=== PATIENT | female | born 1960 | race Caucasian/White ===

== ENCOUNTER 2016-12-13 12:09 | Emergency (ER) | payer OTHER ==
[2016-12-13 12:20] VITALS: BMI 37.9
[2016-12-13 12:27] VITALS: TEMP 97.7
--- NOTE | 2016-12-13 13:52 | RAD ---
PROCEDURE: Radiographs of the Left Shoulder HISTORY: r/o fx COMPARISON: Comparison made with prior study 01/01/2016 FINDINGS: BONES: No definitive radiographic evidence of acute displaced fracture. JOINTS: Anterior inferior dislocation left humeral head with respect to the glenoid. . Mild degenerative changes left acromioclavicular joint. SOFT TISSUES: There appears to be some small calcifications in the soft tissues subjacent to the distal margin of the acromion. OTHER FINDINGS: None. IMPRESSION: Anterior inferior dislocation left humeral head. . Mild DJD as above. Tiny calcifications within the soft tissues subjacent to the mid distal margin acromion.
--- NOTE | 2016-12-13 13:53 | RAD ---
PROCEDURE: Left knee dated 12/13/2016 HISTORY: Pain. COMPARISON: None. FINDINGS: BONES: No evidence of acute displaced fracture nor dislocation. The osseous structures appear intact. JOINTS: Joint spaces relatively preserved. Tiny posterior patellar osteophytes. JOINT EFFUSION: Questionable trace joint effusion OTHER FINDINGS: None. IMPRESSION: No acute fractures. Questionable trace joint
[2016-12-13 14:28] VITALS: BP 125/78; PULSE 78; RESP 16; O2SAT 98
--- NOTE | 2016-12-13 14:50 | C.PDOC ---
History Of Present Illness 56 y/o female presents to the ED with complains of left shoulder and knee pain for the past 2 months s/p fall. Pt initially went to [facility] for evaluation. Denies fall or trauma since then. Pt ambulates with limp. Denies weakness, numbness, or any other complaints. Chief Complaint (Nursing): Upper Extremity Problem/Injury History Per: Patient History/Exam Limitations: no limitations Onset/Duration Of Symptoms: Days Current Symptoms Are (Timing): Still Present Quality: "Pain" Severity: Moderate Recent travel outside of the [place]: No Past Medical History Reviewed: Historical Data, Nursing Documentation, Vital Signs Vital Signs: Last Vital Signs Temp 97.7 F 12/13/16 12:22 Pulse 78 12/13/16 14:26 Resp 16 12/13/16 14:26 BP 125/78 12/13/16 14:26 Pulse Ox 98 12/13/16 14:54 - Medical History PMH: Arthritis, Depression, HTN Family History: States: Unknown Family Hx - Social History Hx Alcohol Use: No Hx Substance Use: No - Immunization History Hx Tetanus Toxoid Vaccination: No Hx Influenza Vaccination: No Hx Pneumococcal Vaccination: No Review Of Systems Musculoskeletal: Positive for: Shoulder Pain (left), Other (left knee pain) Neurological: Negative for: Weakness, Numbness Physical Exam - Physical Exam Appears: Non-toxic, No Acute Distress Skin: Warm, Dry, No Rash Head: Atraumatic, Normacephalic Chest: Symmetrical Cardiovascular: Rhythm Regular, No Murmur Respiratory: Normal Breath Sounds, No Rales, No Rhonchi, No Wheezing Extremity: Capillary Refill (<2 seconds), Other (Left shoulder swelling with decreased ROM in all melchor and creppitus. Left knee with slight decrease ROM and creppitus, no point tenderness. ) Pulses: Left Radial: Normal, Left Dorsalis Pedis: Normal Neurological/Psych: Oriented x3, Normal Speech, Normal Motor, Normal Sensation ED Course And Treatment O2 Sat by Pulse Oximetry: 98 (room air) Pulse Ox Interpretation: Normal Progress Note: After obtaining shoulder Xray, shoulder easily reduced, (+) pulses after reduction. Shoulder immobilizer placed. Instructed patient the need to follow up with orthopedic surgery. Disposition - Disposition Referrals: Cuauhtemoc Rob III, MD [Staff Provider] - Disposition: HOME/ ROUTINE Disposition Time: 14:00 Condition: GOOD Additional Instructions: Thank you for letting us take care of you today. Your provider was Dr. Simmons. You were treated for chronic shoulder dislocation. The emergency medical care you received today was directed at your acute symptoms. If you were prescribed any medication, please fill it and take as directed. It may take several days for your symptoms to resolve. Return to the Emergency Department if your symptoms worsen, do not improve, or if you have any other problems. Please contact your doctor or call one of the physicians/clinics you have been referred to that are listed on the Patient Visit Information form that is included in your discharge packet. Bring any paperwork you were given at discharge with you along with any medications you are taking to your follow up visit. Our treatment cannot replace ongoing medical care by a primary care provider (PCP) outside of the emergency department. Thank you for allowing the [facility] team to be part of your care today. You have a dislocated shoulder which occurred approximately 2 months ago. Follow up with the orthopedic surgeon next week for evaluation of your shoulder. Do not take your arm out of the sling until you are seen by him. Prescriptions: Ibuprofen [Motrin] 600 mg PO Q6 PRN #20 tab PRN Reason: Pain, Moderate (4-7) Instructions: Shoulder Dislocation (ED) Forms: Gen Discharge Inst Romanian Print Language: MALTESE - Clinical Impression Clinical Impression: Chronic dislocation of left shoulder, Knee pain - Scribe Statement The provider has reviewed the documentation as recorded by the Radha Boyce Provider Attestation: All medical record entries made by the Radha were at my direction and personally dictated by me. I have reviewed the chart and agree that the record accurately reflects my personal performance of the history, physical exam, medical decision making, and the department course for this patient. I have also personally directed, reviewed, and agree with the discharge instructions and disposition.
--- NOTE | 2016-12-13 15:02 | RAD ---
PROCEDURE: Left shoulder dated 12/13/2016. HISTORY: Questionable postreduction COMPARISON: Comparison made with prior radiographs left shoulder earlier same day TECHNIQUE: Single view of the left shoulder performed. . FINDINGS: Interval reduction previously noted as above anteriorly inferiorly dislocated left humeral head with respect to the glenoid. . No definitive evidence of acute displaced fracture nor dislocation. IMPRESSION: Status post reduction previously noted at dislocated left humerus
== END 2016-12-13 14:26 | disposition home or self-care (01) ==
LOC: C.ER 12:09
DX: M24.412 Recurrent dislocation, left shoulder (principal); M25.562 Pain in left knee